=== PATIENT | female | born 1935 | race African-American/Black ===

== ENCOUNTER 2020-05-13 03:19 | Emergency (ER) | payer OTHER ==
[2020-05-13 03:26] VITALS: TEMP 96.5; BMI 28.3
[2020-05-13] MEDS ORDERED: NICARDIPINE 25 MG in DEXTROSE 5%-WATER - 240 ML IVPB SCH (03:30)
--- NOTE | 2020-05-13 03:36 | PDOC ---
History of Present Illness - General Chief Complaint: CVA/TIA Stated Complaint: POSSIBLE STROKE - History of Present Illness Initial Comments: 05/13/20 03:34 84F pmh HTN, HLD, hypothyroidism here with sudden onset of headache and confusion. Pt was USOH at 10pm. Shortly after 2am patient came out of her bedroom to her children's bedroom in distress and seeking help. She endorsed an intense posterior headache that woke her from sleep. According to family she appeared confused and had trouble answering questions. No change in facial appearances, no change in voice or slurring. Family gave her an 81mg ASA right before calling EMS. Patient first examined at 0245 05/13/20 Timing/Duration: reports: 4-6 hours, constant Associated Symptoms: reports: confusion Past History - Medical History Allergies/Adverse Reactions: Allergies Allergy/AdvReac Type Severity Reaction Status Date / Time No Allergy Information Allergy Verified 05/13/20 03:23 Available Home Medications: Ambulatory Orders Unobtainable 05/13/20 - Reproductive History Is Patient Now?: No - Psycho-Social/Smoking History Smoking History: Never smoked Have you smoked in the past 12 months: No Information on smoking cessation initiated: No - Substance Abuse Hx (Audit-C & DAST Scrn) How often the patient has a drink containing alcohol: Never Score: In Men: 4 or > Positive; In Women: 3 or > Positive: 0 Screen Result (Pos requires Nsg. Audit-10AR): Negative In the last yr the pt used illegal drug/Rx for NonMed reason: No Score: Yes response is considered Positive: 0 Screen Result (Positive result requires Nsg. DAST-10): Negative Review of Systems - Review of Systems Able to Perform ROS?: No Is the patient limited [place]ian proficient: Yes *Physical Exam - Vital Signs Last Vital Signs Temp Pulse Resp BP Pulse Ox 96.5 F L 59 L 14 241/88 H 100 05/13/20 03:24 05/13/20 03:24 05/13/20 03:24 05/13/20 03:24 05/13/20 03:24 - Physical Exam General Appearance: Yes: Nourished, Moderate Distress HEENT: positive: Normal Voice, Symmetrical Neck: positive: Supple. negative: Tender Respiratory/Chest: positive: Lungs Clear, Normal Breath Sounds. negative: Respiratory Distress Gastrointestinal/Abdominal: negative: Tender Musculoskeletal: negative: Normal Inspection Neurologic: positive: Alert, Motor Strength 5/5, Responsive. negative: EOM Palsy, Facial Droop NIH Stroke Scale - Last Known Well Date/Time & Onset Date Last Known Well: 05/12/20 Time Last Known Well: 22:00 - Initial Evaluation Level of consciousness: Alert Ask patient the month and their age: Answers one correctly Ask patient to open & close eyes; make fist and let go: Obeys both correctly Best gaze (horizontal eye movement): Normal Visual field testing: No visual field loss Facial paresis (Show teeth/raise eyebrows/close eyes tight): Normal symmetrical movement Motor Function: Left Arm: Normal Motor Function: Right Arm: Normal (extends arm 90 (or 45) degrees for 10 seconds without drift Motor Function: Left Leg: Normal (extends leg 30 degrees for 5 seconds without drift) Motor Function: Right Leg: Normal (extends leg 30 degrees for 5 seconds without drift) Limb Ataxia: No ataxia Sensory(Use pinprick test arms,legs,trunk,face/side to side): Normal Best language (Describe picture, name items, read sentences): No Aphasia Dysarthria (read several words): Normal articulation Extinction and Inattention: No abnormality - Total Score NIH Stroke Scale Score: 1 Critical Care Time/MDM Note - Medical Decision Making Note: 05/13/20 03:41 Cr marroquin called at 0245, Imaging was evaluated in CT control room showing extensive R sided SAH Initial BP 241/88, Nicardipine drip started 2.5mg/h titrating up 2.5mg/h every 5 minutes for goal of <140 sbp [pt was alert with normal level of conciousness] Contacted [facility] for transfer, spoke with endovascular consults Dr Saha and Dr Bridges, accepted for transfer to ED BP goal reached at 7.5mg/h while patient was being prepared for transport, nicardipine drip fixed to 3mg/h, mental status maintained pre-op labs drawn and pending at time of transfer [facility] radiologist called and confirmed my impression of CT Discharge - Discharge Information Problems reviewed: Yes Clinical Impression/Diagnosis: Subarachnoid bleed Condition: Critical Disposition: TRANSFER ACUTE CARE/OTHER HOSP - Follow up/Referral - Patient Discharge Instructions - Post Discharge Activity
[2020-05-13 04:03] LABS: BASO % 0.4 % (0-2.0); EOS % 3.7 % (0-4.5); HEMATOCRIT 32.9 % (32.4-45.2); HEMOGLOBIN 10.7 GM/dL (10.7-15.3); LYMPH % 36.8 % (8-40); MCH 26.1 pg (25.7-33.7); MCHC 32.5 g/dl (32.0-36.0); MEAN CELL VOLUME 80.5 fl (80-96); MONO % 5.8 % (3.8-10.2); NEUT % 53.3 % (42.8-82.8); PLATELET COUNT 287 K/MM3 (134-434); RBC 4.09 M/mm3 (3.60-5.2); RDW 15.5 % (11.6-15.6); WHITE BLOOD COUNT 8.7 K/mm3 (4.0-10.0)
[2020-05-13 04:16] LABS: INR 1.02 (0.83-1.09)
[2020-05-13 04:19] LABS: ACTIVATED PTT 33.2 SECONDS (25.2-36.5)
[2020-05-13 04:24] VITALS: BP 114/59; PULSE 65
[2020-05-13 04:24] LABS: ALBUMIN 3.1 g/dl (3.4-5.0); BILIRUBIN,TOTAL 0.3 mg/dL (0.2-1); BLOOD UREA NITROGEN 35.4 mg/dL (7-18); CALCIUM 7.9 mg/dL (8.5-10.1); CREATININE 2.2 mg/dL (0.55-1.3); POTASSIUM 3.3 mmol/L (3.5-5.1); TOT PROT 6.9 g/dl (6.4-8.2)
--- NOTE | 2020-05-18 13:15 | EKG ---
Test Reason : Blood Pressure : / mmHG Vent. Rate : 065 BPM Atrial Rate : 065 BPM P-R Int : 164 ms QRS Dur : 082 ms QT Int : 506 ms P-R-T Axes : 054 011 046 degrees QTc Int : 526 ms SINUS RHYTHM WITH PREMATURE ATRIAL COMPLEXES MODERATE VOLTAGE CRITERIA FOR LVH, MAY BE NORMAL VARIANT PROLONGED QT ABNORMAL ECG NO PREVIOUS ECGS AVAILABLE Confirmed by MD JAIMIE, TR ([id number]) on 05/18/2020 1:15:09 PM Referred By: Confirmed By:TR ETIENNE MD
== END 2020-05-13 03:45 | disposition short-term general hospital (02) ==
LOC: JER 03:19
PROC: 3E033GC Introduction of Other Therapeutic Substance into Peripheral Vein, Percutaneous Approach (ICD-10-PCS; principal; 2020-05-13)
DX: I60.8 Other nontraumatic subarachnoid hemorrhage (principal)
CPT/HCPCS: 36415; 70450-TC; 80053; 85025; 85610; 85730; 86850; 86900; 86901; 93005; 93010; 99285-25